=== PATIENT | male | born 1995 | race Caucasian/White ===

== ENCOUNTER 2019-09-05 11:22 | Emergency (ER) | payer MEDICAID ==
[2019-09-05 11:48] LABS: RAPID STREP SCREEN Negative (Negative)
[2019-09-05] MEDS ORDERED: CHERRY SYRUP 10 ML UDC PO ONE (14:37)
[2019-09-05] MEDS ORDERED: CLINDAMYCIN 150 MG CAPSULE PO STA (14:37)
[2019-09-05] MEDS ORDERED: DEXAMETHASONE 10 MG/ML VIAL PO STA (14:37)
--- NOTE | 2019-09-05 14:37 | ED Physician Documentation ---
History of Present Illness - Stated complaint Stated Complaint: SORE THROAT - Chief complaint Chief Complaint: Heent - Additonal information Additional information: This is a 24-year-old male who denies past medical history presents with sore throat. Patient has had a sore throat for last 3 days, and states that started feeling painful on both sides, and now he has more pain in the left is radiating up towards his ear. He denies voice changes, denies difficulty breathing, no chest pain. No measured fever. No cough or rhinorrhea. No obvious sick contacts or strep throat exposure. Review of Systems Constitutional: denies: Fever Ears: denies: Loss of hearing Nose: denies: Rhinorrhea / runny nose Throat: reports: Sore throat PD PAST MEDICAL HISTORY - Present Medications Home Medications: Ambulatory Orders Medication Instructions Recorded Confirmed Clindamycin HCl [Clindamycin 300MG 300 mg PO Q6H #28 capsule 09/05/19 CAP] - Allergies Allergies/Adverse Reactions: Allergies Allergy/AdvReac Type Severity Reaction Status Date / Time No Known Drug Allergies Allergy Verified 09/05/19 11:33 PD ED PE NORMAL - Vitals Vital signs reviewed: Yes - General General: Alert and oriented X 3, No acute distress - HEENT HEENT: Other (Head is atraumatic, there is no facial swelling or. Patient has excellent range of motion of his jaw, he has a uvula which is midline and tonsils which are 3+ erythematous bilaterally. There is no exudate. The tonsils are symmetric and there is swelling. Patient has full active range of motion of his neck without any limitation. He has a lymph node on the left which is 2 cm x 1 cm mobile, rubbery. No posterior lymphadenopathy palpated. His tympanic membranes are clear and flat bilaterally.) - Cardiac Cardiac: RRR - Respiratory Respiratory: No respiratory distress, Clear bilaterally - Extremities Extremities: No deformity - Neuro Neuro: Alert and oriented X 3, fiber optic splicer 2-12 intact Results - Vitals Vitals: Oxygen O2 Source Room air - Labs Labs: Microbiology 09/05/19 11:35 Group A Strep Throat Culture - Final Throat Beta Hemolytic Strep Group A Laboratory Tests 09/05/19 11:35 Group A Strep Rapid Negative PD MEDICAL DECISION MAKING - ED course Complexity details: considered differential (Tonsillitis, strep throat, peritonsillar abscess, deep space infection) ED course: Patient is well-appearing and nontoxic, he has good range of motion of his neck, he does have signs of tonsillitis with symmetrically enlarged tonsils bilaterally, but no difficulty breathing, no asymmetry of the tonsils or the uvula, no signs of peritonsillar abscess at this time. He has excellent range of motion of his neck, no pain with palpation of the neck, he has some cervical lymphadenopathy, but no other signs of masses or swelling, no signs of more serious infection at this time. Negative rapid strep, however given his overall presentation I am concerned for bacterial tonsillitis, I do think he warrants steroids and antibiotics. He was given clindamycin and dexamethasone and I prescribed him a course of clindamycin. I also discussed him in depth signs of peritonsillar abscess or more serious infection that would require return to the emergency department for further evaluation. Patient agreed to this plan and was discharged home in good condition. Departure - Departure Disposition: 01 Home, Self Care Clinical Impression: Acute bacterial tonsillitis Condition: Good Prescriptions: Clindamycin HCl [Clindamycin 300MG CAP] 300 mg PO Q6H #28 capsule Comments: You appear to have an infection of your tonsils, we gave you antibiotic and steroid today, please take the entire course of the antibiotic. If you developing swelling on one side of your your mouth, redness or swelling of your face, difficulty breathing, fever of 100.4F or greater despite antibiotics, Severe neck pain, or any other concerning symptoms, return to the emergency department, as these can be signs of a more serious infection or signs of an abscess needs to be drained as we discussed. You may take ibuprofen 600 mg every 6 hours and Tylenol 650 mg every 6 hours as needed for discomfort and fever. Discharge Date/Time: 09/05/19 14:59
[2019-09-05 14:59] VITALS: BP 126/92
== END 2019-09-05 14:59 | disposition home or self-care (01) ==
LOC: ED 11:22
DX: J03.80 Acute tonsillitis due to other specified organisms (principal); B96.89 Other specified bacterial agents as the cause of diseases classified elsewhere
CPT/HCPCS: 87070; 87077; 87430; 99283; A9270